=== PATIENT | male | born 1975 | race African-American/Black ===

== ENCOUNTER 2024-01-24 15:53 | Emergency (ER) | payer OTHER ==
[~2024-01-24] VITALS: Ht 177.8 cm; Wt 90.0 kg
[2024-01-24] MEDS: LORazepam 2 MG/ML VIAL IVP ONE (16:37)
[2024-01-24 18:15] LABS: BASOPHILS % (AUTO) 0.2 % (0.0-2.0); EOSINOPHILS % (AUTO) 0 % (1.0-6.0); HEMATOCRIT 41.6 % (41-53); HEMOGLOBIN 13.9 g/dL (13.5-17.5); LYMPHOCYTES # (AUTO) 0.8 K/uL (1.0-4.8); MEAN CORPUSCULAR HEMOGLOBIN 32.6 pg (26.0-34.0); MEAN CORPUSCULAR HGB CONC 33.5 G/dL (31.0-37.0); MEAN CORPUSCULAR VOLUME 97 fL (80-100); MONOCYTES # (AUTO) 0.4 K/uL (0.1-1.0); MONOCYTES % (AUTO) 4.9 % (2.0-9.0); NEUTROPHILS # (AUTO) 7.4 K/uL (1.8-7.7); PLATELET COUNT (AUTO) 121 K/uL (150-450); RED BLOOD CELL COUNT(AUTO) 4.27 MIL/uL (4.50-5.90); RED CELL DISTRIBUTION WIDTH 13.8 % (11.5-14.5); WHITE BLOOD COUNT (AUTO) 8.6 K/uL (4.5-11.0)
[2024-01-24 18:16] LABS: NEUTROPHILS % (AUTO) 85.9 % (40.0-70.0)
[2024-01-24 18:24] LABS: TROPONIN I-HIGH SENSITIVITY 15 ng/L (<76)
[2024-01-24 18:51] LABS: ANION GAP 9 mmol/L (8-16); CALCIUM, TOTAL 8.9 mg/dL (8.8-10.5); CARBON DIOXIDE 28 mmol/L (22-29); CHLORIDE 101 mmol/L (98-107); CREATININE 1.47 mg/dL (0.60-1.30); GLOMERULAR FILTR. RATE CALC > 60 mL/min (>60); GLUCOSE,RANDOM 140 mg/dL (70-110); POTASSIUM 3.7 mmol/L (3.5-5.1); SODIUM SERUM 138 mmol/L (136-145); UREA NITROGEN, BLOOD 14 mg/dL (7-18)
[2024-01-24 19:15] LABS: CREATINE KINASE, TOTAL ONLY 307 U/L (39-308); VALPROIC ACID 63 mcg/mL (50-100)
[2024-01-24] MEDS: LevETIRAcetam 1,000 MG in DEXTROSE 5%-WATER 100 ML IV ONE (19:18)
[2024-01-24] MEDS: SODIUM CHLORIDE 0.9% 1,000 ML IV ONE (22:01)
[2024-01-24 22:38] VITALS: BP 146/72; PULSE 89; RESP 16; TEMP 99.1
== END 2024-01-24 23:00 | disposition home or self-care (01) ==
LOC: EMS 15:53
DX: G40.909 Epilepsy, unspecified, not intractable, without status epilepticus (principal)
CPT/HCPCS: 99285; 96365; 70450; 71045; 96361; 96375; 80048; 80164; 82550; 84484; 85025; 36415; 93005; J0712; J2060; J7060; J7030

== ENCOUNTER 2024-05-18 20:03 | Inpatient (IN) | payer OTHER ==
[~2024-05-18] VITALS: Ht 185.4 cm; Wt 81.8 kg
[2024-05-18 21:49] LABS: BASOPHILS % (AUTO) 0.4 % (0.0-2.0); EOSINOPHILS % (AUTO) 0.2 % (1.0-6.0); HEMATOCRIT 41.7 % (41-53); HEMOGLOBIN 14.1 g/dL (13.5-17.5); LYMPHOCYTES # (AUTO) 2.1 K/uL (1.0-4.8); LYMPHOCYTES % (AUTO) 26.6 % (22.0-44.0); MEAN CORPUSCULAR HEMOGLOBIN 33.7 pg (26.0-34.0); MEAN CORPUSCULAR HGB CONC 33.7 G/dL (31.0-37.0); MEAN CORPUSCULAR VOLUME 100 fL (80-100); MONOCYTES # (AUTO) 0.5 K/uL (0.1-1.0); NEUTROPHILS # (AUTO) 5.3 K/uL (1.8-7.7); NEUTROPHILS % (AUTO) 66.8 % (40.0-70.0); PLATELET COUNT (AUTO) 137 K/uL (150-450); RED BLOOD CELL COUNT(AUTO) 4.18 MIL/uL (4.50-5.90); RED CELL DISTRIBUTION WIDTH 13.9 % (11.5-14.5)
[2024-05-18 21:51] LABS: ANION GAP 3 mmol/L (8-16); CALCIUM, TOTAL 9.3 mg/dL (8.8-10.5); CARBON DIOXIDE 31 mmol/L (22-29); CHLORIDE 103 mmol/L (98-107); CREATININE 1.43 mg/dL (0.60-1.30); GLOMERULAR FILTR. RATE CALC > 60 mL/min (>60); GLUCOSE,RANDOM 80 mg/dL (70-110); POTASSIUM 4.7 mmol/L (3.5-5.1); SODIUM SERUM 137 mmol/L (136-145); UREA NITROGEN, BLOOD 14 mg/dL (7-18)
[2024-05-18 22:22] LABS: VALPROIC ACID 71 mcg/mL (50-100)
[2024-05-18] MEDS: LevETIRAcetam 1,000 MG in DEXTROSE 5%-WATER 100 ML IV ONE (23:11)
[2024-05-18 23:38] LABS: TROPONIN I-HIGH SENSITIVITY 5 ng/L (<76)
[2024-05-19] MEDS ORDERED: MAGNESIUM HYDROXIDE SUSPENSION 30 ML UDCUP PO PRN (01:15)
[2024-05-19] MEDS ORDERED: LORazepam 2 MG/ML VIAL IVP PRN (01:15)
[2024-05-19] MEDS ORDERED: ACETAMINOPHEN 325 MG TABLET PO PRN (01:15)
[2024-05-19 05:22] VITALS: BP 135/77; PULSE 73; RESP 16; TEMP 98.4; O2SAT 100
[2024-05-19 07:40] VITALS: BP 139/101; PULSE 69; RESP 20; TEMP 98.9; O2SAT 97
[2024-05-19] MEDS: LevETIRAcetam 500 MG TABLET PO SCH ×2 (08:40→19:58)
[2024-05-19] MEDS: DIVALPROEX SODIUM 500 MG DR TABLET PO SCH (08:41)
[2024-05-19] MEDS: FAMOTIDINE 20 MG TABLET PO SCH (08:41)
[2024-05-19 11:46] VITALS: BP 138/86; PULSE 61; RESP 18; TEMP 98.1; O2SAT 97
[2024-05-19 16:18] VITALS: BP 127/73; PULSE 67; RESP 18; TEMP 98.5; O2SAT 100
[2024-05-19 19:49] VITALS: BP 125/79; PULSE 73; RESP 17; TEMP 98.6; O2SAT 100
[2024-05-20 00:05] VITALS: BP 118/82; PULSE 71; RESP 18; TEMP 99.2; O2SAT 100
[2024-05-20 05:42] VITALS: BP 115/74; PULSE 64; RESP 18; TEMP 98.7; O2SAT 99
[2024-05-20 07:42] VITALS: BP 131/79; PULSE 64; RESP 19; TEMP 98.6; O2SAT 100
[2024-05-20 10:53] VITALS: BP 124/78; PULSE 60; RESP 19; TEMP 98.5; O2SAT 100
[2024-05-20 10:56] VITALS: BP 124/78; PULSE 60; RESP 18; TEMP 98.4; O2SAT 100
[2024-05-20] MEDS ORDERED: LEVE250T81 PO (11:04)
== END 2024-05-20 14:15 | disposition home or self-care (01) | DRG 53 ==
LOC: EMS 20:03 → EDH 05-19 01:54 → 5S 05-19 05:01
PROVIDERS: ADMIT Internal Medicine; ATTEND Internal Medicine
DX: G40.909 Epilepsy, unspecified, not intractable, without status epilepticus (principal); Z91.199 Patient's noncompliance with other medical treatment and regimen due to unspecified reason
CPT/HCPCS: 70450; 71045; 80048; 80164; 84484; 85025; 93005; 99285; G0480; J0712; J7060; 36415-L1; 36415-TC

== ENCOUNTER 2024-06-13 15:42 | Emergency (ER) | payer OTHER ==
[~2024-06-13] VITALS: Ht 180.3 cm; Wt 81.8 kg
[~2024-06-13 15:42] MED LIST: LEVE250T81 PO
[2024-06-13 15:57] VITALS: TEMP 97.8
[2024-06-13] MEDS ORDERED: DIVA-112 PO (16:28)
[2024-06-13 16:31] LABS: COVID AG,FIA SOURCE NASAL SWAB
[2024-06-13] MEDS: ACETAMINOPHEN 325 MG TABLET PO ONE (16:40)
[2024-06-13 16:51] LABS: INFLUENZA TYPE A NEGATIVE FOR TYPE A (NEGATIVE); INFLUENZA TYPE B NEGATIVE FOR TYPE B (NEGATIVE); SARS-COV2 (COVID) ANTIGEN,FIA Negative (Negative)
[2024-06-13 16:55] LABS: BASOPHILS % (AUTO) 0.4 % (0.0-2.0); EOSINOPHILS % (AUTO) 0.9 % (1.0-6.0); HEMATOCRIT 40.2 % (41-53); HEMOGLOBIN 13.6 g/dL (13.5-17.5); LYMPHOCYTES # (AUTO) 1.3 K/uL (1.0-4.8); LYMPHOCYTES % (AUTO) 22.8 % (22.0-44.0); MEAN CORPUSCULAR HEMOGLOBIN 33.2 pg (26.0-34.0); MEAN CORPUSCULAR HGB CONC 33.7 G/dL (31.0-37.0); MEAN CORPUSCULAR VOLUME 98 fL (80-100); MONOCYTES # (AUTO) 0.5 K/uL (0.1-1.0); NEUTROPHILS # (AUTO) 3.8 K/uL (1.8-7.7); NEUTROPHILS % (AUTO) 66.9 % (40.0-70.0); PLATELET COUNT (AUTO) 111 K/uL (150-450); RED BLOOD CELL COUNT(AUTO) 4.08 MIL/uL (4.50-5.90); RED CELL DISTRIBUTION WIDTH 13.2 % (11.5-14.5); WHITE BLOOD COUNT (AUTO) 5.7 K/uL (4.5-11.0)
[2024-06-13 17:11] LABS: ANION GAP 6 mmol/L (8-16); CALCIUM, TOTAL 8.3 mg/dL (8.8-10.5); CARBON DIOXIDE 30 mmol/L (22-29); CHLORIDE 104 mmol/L (98-107); CREATININE 1.43 mg/dL (0.60-1.30); GLOMERULAR FILTR. RATE CALC > 60 mL/min (>60); GLUCOSE,RANDOM 88 mg/dL (70-110); POTASSIUM 3.5 mmol/L (3.5-5.1); SODIUM SERUM 140 mmol/L (136-145); UREA NITROGEN, BLOOD 10 mg/dL (7-18)
[2024-06-13 17:35] LABS: ALANINE AMINOTRANSFERASE 20 U/L (12-78); ALBUMIN 2.9 g/dL (3.4-5.0); ALKALINE PHOSPHATASE 54 U/L (46-116); ASPARTATE AMINOTRANSFERASE 23 U/L (15-37); BILIRUBIN,TOTAL 0.4 mg/dL (0.1-1.0); CREATINE KINASE, TOTAL ONLY 99 U/L (39-308); TOTAL PROTEIN, SERUM 6.7 g/dL (6.4-8.2)
[2024-06-13 18:00] VITALS: BP 124/77; PULSE 73; RESP 14; O2SAT 98
== END 2024-06-13 18:26 | disposition home or self-care (01) ==
LOC: EMS 15:42
DX: G40.909 Epilepsy, unspecified, not intractable, without status epilepticus (principal); R53.1 Weakness; R53.83 Other fatigue; Z79.899 Other long term (current) drug therapy; Z20.822 Contact with and (suspected) exposure to COVID-19
CPT/HCPCS: 99283; 87426; 80048; 80076; 82550; 85025; 87804; 36415; G0482

== ENCOUNTER → 2024-08-30 | Emergency (ER) | payer OTHER ==
[~2024-08-30] VITALS: Ht 185.4 cm; Wt 78.6 kg
[~2024-08-30] MED LIST changes: +ACET-66 PO; +DIVA-112 PO; +LORA1TAB25 PO
[2024-08-30 01:33] VITALS: TEMP 96
[2024-08-30 03:07] LABS: BASOPHILS % (AUTO) 0.5 % (0.0-2.0); HEMATOCRIT 38.3 % (41-53); HEMOGLOBIN 12.7 g/dL (13.5-17.5); LYMPHOCYTES # (AUTO) 2.7 K/uL (1.0-4.8); LYMPHOCYTES % (AUTO) 46.1 % (22.0-44.0); MEAN CORPUSCULAR HEMOGLOBIN 33.2 pg (26.0-34.0); MEAN CORPUSCULAR HGB CONC 33.2 G/dL (31.0-37.0); MEAN CORPUSCULAR VOLUME 100 fL (80-100); MONOCYTES # (AUTO) 0.5 K/uL (0.1-1.0); MONOCYTES % (AUTO) 8.6 % (2.0-9.0); NEUTROPHILS # (AUTO) 2.5 K/uL (1.8-7.7); NEUTROPHILS % (AUTO) 42.8 % (40.0-70.0); PLATELET COUNT (AUTO) 134 K/uL (150-450); RED BLOOD CELL COUNT(AUTO) 3.83 MIL/uL (4.50-5.90); RED CELL DISTRIBUTION WIDTH 13.7 % (11.5-14.5); WHITE BLOOD COUNT (AUTO) 5.8 K/uL (4.5-11.0)
[2024-08-30 03:19] LABS: ANION GAP 4 mmol/L (8-16); CALCIUM, TOTAL 8.6 mg/dL (8.8-10.5); CARBON DIOXIDE 33 mmol/L (22-29); CHLORIDE 105 mmol/L (98-107); CREATININE 1.57 mg/dL (0.60-1.30); GLOMERULAR FILTR. RATE CALC 57 mL/min (>60); GLUCOSE,RANDOM 76 mg/dL (70-110); POTASSIUM 4.1 mmol/L (3.5-5.1); SODIUM SERUM 142 mmol/L (136-145); UREA NITROGEN, BLOOD 15 mg/dL (7-18)
[2024-08-30] MEDS: LORazepam 2 MG TABLET PO ONE (03:29)
[2024-08-30] MEDS: ACETAMINOPHEN 500 MG TABLET PO ONE (03:29)
[2024-08-30 03:41] LABS: ALCOHOL, BLOOD (SERUM) < 3 mg/dL (0-10)
[2024-08-30 04:03] VITALS: BP 145/98; PULSE 69; RESP 16; O2SAT 99
== END | disposition still patient (30) ==
LOC: EMS 01:04
DX: G40.909 Epilepsy, unspecified, not intractable, without status epilepticus (principal); F41.1 Generalized anxiety disorder; N28.9 Disorder of kidney and ureter, unspecified; R03.0 Elevated blood-pressure reading, without diagnosis of hypertension; Z79.899 Other long term (current) drug therapy
CPT/HCPCS: 99283; 80048; 85025; 36415; G0480